=== PATIENT | male | born 1990 | race Caucasian/White ===

== ENCOUNTER 2021-02-08 12:46 | Emergency (ER) | payer SELFPAY ==
[~2021-02-08] VITALS: Ht 188 cm; Wt 67.1 kg
--- NOTE | 2021-02-08 13:09 | NUR ---
patient came in to the er c/o panic attack since this morning. On room air, breathing evenly and unlabored. Kept comfortable, will continue to monitor accordingly.
[2021-02-08] MEDS ORDERED: LORAZEPAM 1 MG TABLET ONE (13:19)
[2021-02-08] MEDS ORDERED: LORAZEPAM 1 MG TABLET PO ONE (13:30)
[2021-02-08] MEDS ORDERED: LORA-259 PO (13:38)
[2021-02-08 14:51] VITALS: BP 118/77
--- NOTE | 2021-02-08 14:52 | NUR ---
Patient discharged to home in stable condition. Written and verbal after care instructions given. Patient verbalizes understanding of instruction.
== END 2021-02-08 14:52 | disposition home or self-care (01) ==
LOC: ER 12:53
DX: F41.9 Anxiety disorder, unspecified (principal)